=== PATIENT | female | born 1955 | race Caucasian/White ===

== ENCOUNTER → 2018-02-20 | Outpatient (CLI) | payer OTHER ==
[~2018-02-20] MED LIST: CLINDAMYCIN HC300 MG PO; CLONIDINE HCL0.2 MG PO; Cimetidine400 MG PO; K-DUR 2020 MEQ PO; K-Dur 20MEQ20 MEQ PO; METOPROLOL; OMEPRAZOLE MAGN20 MG PO; SPIRONOLACT; VALSART/HCTZ TAB 320; ZOFRAN ODT4 MG SL; ZOLOFT25 MG PO
== END | disposition home or self-care (01) ==
LOC: US 16:00
DX: R10.31 Right lower quadrant pain (principal); M79.661 Pain in right lower leg